=== PATIENT | male | born 1960 | race Caucasian/White ===

== ENCOUNTER 2017-10-04 20:48 | Emergency (ER) | payer SELFPAY ==
[~2017-10-04] VITALS: Ht 182.9 cm; Wt 90.7 kg
[2017-10-04] MEDS ORDERED: TDAP DIPH,PERTUSS,TET VAC/PF 0.5 ML DISP.SYRIN IM ONE ×2 (21:45→22:08)
[2017-10-04] MEDS ORDERED: IBUPROFEN 800 MG TABLET PO ONE (21:45)
[2017-10-04] MEDS ORDERED: IBUPROFEN 800 MG TABLET ONE (22:08)
--- NOTE | 2017-10-04 23:03 | NUR ---
Patient discharged to home in stable conditon. Written and verbal after care instructions given. Patient verbalizes understanding of instructions.
== END 2017-10-04 23:04 | disposition home or self-care (01) ==
LOC: ER 20:50
DX: S16.1XXA Strain of muscle, fascia and tendon at neck level, initial encounter (principal); S00.81XA Abrasion of other part of head, initial encounter; S80.212A Abrasion, left knee, initial encounter; V43.52XA Car driver injured in collision with other type car in traffic accident, initial encounter; Y92.410 Unspecified street and highway as the place of occurrence of the external cause; Y93.89 Activity, other specified; Y99.8 Other external cause status
CPT/HCPCS: 70450; 72125; 72131; 73030; 73564; 90471; 90715; 99284; A4663

== ENCOUNTER 2019-07-28 13:59 | Emergency (ER) | payer SELFPAY ==
[~2019-07-28] VITALS: Ht 185.4 cm; Wt 90.7 kg
--- NOTE | 2019-07-28 14:09 | NUR ---
Pt was seen by .
[2019-07-28] MEDS ORDERED: LORAZEPAM 0.5 MG TABLET ONE (14:15)
[2019-07-28] MEDS ORDERED: LORAZEPAM 0.5 MG TABLET PO ONE (14:15)
[2019-07-28 14:38] LABS: CREATININE 0.8 mg/dL (0.6-1.3); POTASSIUM 4.1 mmol/L (3.5-5.1)
[2019-07-28 14:43] LABS: BASOPHILS # (AUTO) 0.1 K/uL (0.0-8.0); BASOPHILS % (AUTO) 0.6 % (0.0-2.0); EOSINOPHILS # (AUTO) 0.1 K/uL (0.0-0.7); EOSINOPHILS % (AUTO) 0.6 % (0.0-7.0); LYMPHOCYTES # (AUTO) 3.1 K/uL (20.0-40.0); MEAN CORPUSCULAR HEMOGLOBIN 29.2 uug (23.8-33.4); MEAN CORPUSCULAR HGB CONC 33 g/dL (32.5-36.3); MEAN CORPUSCULAR VOLUME 87.9 fL (73.0-96.2); MONOCYTES # (AUTO) 1.3 K/uL (2.0-10.0); MONOCYTES % (AUTO) 9.8 % (0.0-11.0); NEUTROPHILS # (AUTO) 8.3 K/uL (1.8-8.9); PLATELET COUNT (AUTO) 346 K/uL (152-348); RED BLOOD CELL COUNT(AUTO) 5.46 MIL/uL (4.06-5.63); WHITE BLOOD COUNT (AUTO) 12.9 K/uL (3.6-10.2)
[2019-07-28 14:55] VITALS: BP 113/70
--- NOTE | 2019-07-28 14:59 | NUR ---
Patient discharged to home in stable conditon. Written and verbal after care instructions given. Patient verbalizes understanding of instructions.
== END 2019-07-28 14:59 | disposition home or self-care (01) ==
LOC: ER 13:59
DX: F41.9 Anxiety disorder, unspecified (principal); G47.00 Insomnia, unspecified
CPT/HCPCS: 36415; 85025; A4663